=== PATIENT | male | born 1940 | race Caucasian/White ===

== ENCOUNTER 2016-12-07 05:04 | Inpatient (IN) ==
[2016-11-29 14:26] LABS: INR 0.96; PROTIME 10.1 Seconds (9.2-11.7); PTT 26.8 Seconds (22.0-36.0)
[2016-11-29 14:39] LABS: HEMATOCRIT 40.2 % (42.0-52.0); HEMOGLOBIN 13.1 g/dL (14.0-18.0); MCHC 32.6 g/dL (33-37); MCV 98.3 FL (81-99); MPV 9.5 FL (7.4-10.4); RBC 4.09 XMIL (4.7-6.1)
[2016-11-29 15:24] LABS: AGAP 15; BUN 16 mg/dL (8-22); CALCIUM 8.9 mg/dL (8.8-10.2); CHLORIDE 101 mmol/L (98-107); COSMO 281; POTASSIUM 4.5 mmol/L (3.5-5.1); SODIUM 140 mmol/L (136-145); TCO2 24 mmol/L (25-35)
--- NOTE | 2016-11-29 16:09 | EKG Report ---
Test Performed on : 11/29/2016 1:38:11 PM Test Reason : pat Blood Pressure : / mmHG Vent. Rate : 068 BPM Atrial Rate : 068 BPM P-R Int : 188 ms QRS Dur : 078 ms QT Int : 372 ms P-R-T Axes : 054 -14 022 degrees QTc Int : 395 ms Sinus rhythm. with marked sinus arrhythmia. Otherwise normal ECG When compared with ECG of 13-NOV-2012 12:13, No significant change was found Confirmed by Ishaan MONTALVO, Shamir Gonzalez ([id number]) on 11/29/2016 7:41:18 PM
[2016-12-07] MEDS ORDERED: KEFZOL 2 GM/D5W 2 GM/50 ML IVPB ONE (05:36)
[2016-12-07] MEDS ORDERED: LR 1,000 ML ONE (05:36)
[2016-12-07] MEDS ORDERED: DIPRIVAN 1% 1,000 MG/100 ML BOTTLE ONE (06:26)
[2016-12-07 09:11] LABS: URINE MICRO REVIEW NEEDED? NO; URINE SOURCE CATH
[2016-12-07 09:35] LABS: BILIRUBIN URINE NEGATIVE (NEGATIVE); BLOOD URINE NEGATIVE (NEGATIVE); COLOR YELLOW; GLUCOSE URINE NEGATIVE (NEGATIVE); LEUKOCYTES URINE NEGATIVE (NEGATIVE); NITRITE URINE NEGATIVE (NEGATIVE); PH URINE 6.5; PROTEIN URINE NEGATIVE (NEGATIVE); SP GRAVITY URINE 1.009; TURBIDITY URINE CLEAR (CLEAR); UROBILINOGEN URINE NORMAL (NORMAL)
[2016-12-07 09:37] LABS: UR EPITHELIAL CELLS <10 /HPF (<10); URINE BACTERIA NEGATIVE /HPF; URINE RBC <10 /HPF (<10); URINE WBC <10 /HPF (<10)
[2016-12-07] MEDS ORDERED: NS 0 ML ONE (10:16)
[2016-12-07] MEDS ORDERED: MORPHINE ONE (13:15)
[2016-12-07] MEDS ORDERED: ZOFRAN ONE (13:33)
[2016-12-07] MEDS ORDERED: EPHEDRINE ONE (13:33)
[2016-12-07] MEDS ORDERED: NEO-SYNEPHRINE ONE (13:33)
[2016-12-07] MEDS ORDERED: NEOSTIGMINE ONE (13:33)
[2016-12-07] MEDS ORDERED: NS 250 ML ONE (13:34)
[2016-12-07] MEDS ORDERED: NORCURON ONE (13:34)
[2016-12-07] MEDS ORDERED: ROBINUL ONE (13:34)
[2016-12-07] MEDS ORDERED: XYLOCAINE-MPF 2% ONE (13:34)
[2016-12-07] MEDS ORDERED: OFIRMEV 1000 MG/ISOTONIC SOLN 1,000 MG/100 ML BOTTLE ONE (13:34)
[2016-12-07] MEDS ORDERED: QUELICIN (DOSE) ONE (13:34)
[2016-12-07] MEDS ORDERED: DECADRON ONE (13:34)
[2016-12-07] MEDS ORDERED: LR 3,000 ML ONE (13:34)
[2016-12-07] MEDS ORDERED: DIPRIVAN 1% ONE (13:35)
[2016-12-07] MEDS ORDERED: FENTANYL ONE (13:35)
[2016-12-07] MEDS ORDERED: D5 1/2 NS 1,000 ML ONE (13:49)
[2016-12-07] MEDS ORDERED: PHENERGAN PR PRN (14:08)
[2016-12-07] MEDS ORDERED: ZOFRAN IV PRN (14:08)
[2016-12-07] MEDS ORDERED: LABETALOL IV PRN (14:08)
[2016-12-07] MEDS ORDERED: BENADRYL LIQUID PO PRN (14:08)
[2016-12-07] MEDS ORDERED: DITROPAN PO PRN (14:08)
[2016-12-07] MEDS ORDERED: BENADRYL IV PRN (14:08)
[2016-12-07] MEDS ORDERED: TYLENOL PO PRN (14:08)
[2016-12-07] MEDS ORDERED: PHENERGAN PO PRN (14:08)
[2016-12-07] MEDS ORDERED: SODIUM CHLORIDE 0.9% INJ PRN (14:08)
[2016-12-07] MEDS ORDERED: B & O 15A SUPP PR PRN (14:08)
[2016-12-07] MEDS: MORPHINE IV PRN ×2 (14:58→17:08)
[2016-12-07] MEDS: KEFZOL 1 GM/D5W 1 GM/50 ML IVPB IV SCH ×2 (14:58→23:10)
[2016-12-07] MEDS ORDERED: D5 1/2 NS 1,000 ML IV SCH (15:00)
[2016-12-07] MEDS: NORCO-7.5 PO PRN ×3 (15:21→21:57)
[2016-12-07] MEDS: PHENERGAN IV PRN (19:00)
[2016-12-07] MEDS ORDERED: ZOCOR PO SCH (21:00)
[2016-12-07] MEDS ORDERED: PERIDEX MT SCH (21:00)
[2016-12-07] MEDS ORDERED: COLACE PO SCH (21:00)
[2016-12-08] MEDS: PHENERGAN IV PRN (02:48)
[2016-12-08] MEDS: NORCO-7.5 PO PRN (02:49)
[2016-12-08 06:03] LABS: HEMATOCRIT 38.9 % (42.0-52.0); HEMOGLOBIN 12.8 g/dL (14.0-18.0); MCH 31.4 PG (27-31); MCHC 32.9 g/dL (33-37); MCV 95.6 FL (81-99); MPV 9.1 FL (7.4-10.4); RBC 4.07 XMIL (4.7-6.1)
[2016-12-08 06:31] LABS: AGAP 11; BUN 16 mg/dL (8-22); CALCIUM 8.8 mg/dL (8.8-10.2); CHLORIDE 99 mmol/L (98-107); COSMO 274; SODIUM 136 mmol/L (136-145); TCO2 26 mmol/L (25-35)
[2016-12-08] MEDS: KEFZOL 1 GM/D5W 1 GM/50 ML IVPB IV SCH (06:50)
[2016-12-08 08:41] VITALS: BP 120/74
[2016-12-08] MEDS ORDERED: BENICAR PO SCH (09:00)
[2016-12-08] MEDS ORDERED: NORVASC PO SCH (09:00)
[2016-12-08] MEDS ORDERED: PATIENT'S OWN MED SUBQ SCH (09:00)
--- NOTE | 2016-12-08 09:26 | PROGRESS NOTE ---
DATE: 12/08/2016 SUBJECTIVE: Mr. Asif reports a decent night overnight. He currently denies pain. He denies significant bladder spasms. OBJECTIVE: Vital Signs: Temperature 98.1 degrees, pulse 60, BP 120/74. Urine output was recorded in the amount of 2625 mL. General: No acute distress. Abdomen: Appropriately tender, nondistended. Incisions are clean, dry, and intact in all port sites. : Lomas catheter in place, draining straw-colored urine. ASSESSMENT: A 76-year-old male status post robotic prostatectomy with bilateral pelvic lymph node dissection and laparoscopic urethral suspension, who is doing well. He was educated on postoperative care by me, and cleared for discharge. PLAN: 1. Discharge home. 2. Home with prescriptions for [place] 7.5 p.r.n., Keflex 500 mg t.i.d. (#9), Ditropan 5 mg p.r.n. (#20). 3. He will follow up with me on 12/12/2016 for Lomas catheter removal and pathology review. cc: Tru Jackson MD
--- NOTE | 2016-12-08 10:06 | OPERATIVE NOTE ---
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 PRIMARY PROCEDURES: Robotic-assisted laparoscopic prostatectomy with bilateral pelvic lymph node dissection, and laparoscopic urethral suspension. INDICATIONS: A 76-year-old male who presented with a rising PSA. He underwent prostate biopsy which revealed multifocal [place] 8 prostate adenocarcinoma. He desires to proceed with surgical intervention. He had quite extensive disease in 10 out of 12 cores. FINDINGS: Watertight vesicourethral anastomosis. Adequate hemostasis. Adequate urethral suspension. PROCEDURE IN DETAIL: After obtaining informed consent, the patient was brought to the operative room. Perioperative antibiotics and general endotracheal anesthesia were administered. Prior to that, he had a spinal anesthesia administered per patient's family request. He was placed in lithotomy position, prepped and draped in sterile fashion. An 18-Ind[place]ian Lomas catheter was introduced in a sterile fashion. A 15 blade scalpel was used to make a small stab incision in the umbilicus, followed by introduction of the Veress needle connected to saline filled syringe. We could not confirm positive drop test, and I switched it to the upper left quadrant. The Veress needle inserted there. We confirmed positive drop test, followed by aspiration of fluid in the syringe without evidence of GI contents or blood. We then insufflated his pneumoperitoneum to 15 mmHg. We marked out the trocar sites in a standard fashion. Bovie electrocautery was used to incise the skin. Camera trocar was introduced. Abdominal cavity was examined without evidence of significant adhesions. The rest of the trocars were placed under direct vision. He was placed in steep Trendelenburg position. The robot was docked. We began by incising the peritoneum approximately 3 cm above the rectum, identifying right vas deferens, following by dissection and transection. We then identified the right seminal vesicle and dissected it with minimal use of electrocautery to save neurovascular bundles. We then performed the same thing on the left side. Subsequent to that, we dissected anterior to vas deferens to the level of the prostate and posterior to the vas deferens, through Denonvilliers fascia, into perirectal planes. Once that was done, we turned attention to dropping the bladder. We incised lateral to each medial umbilical ligament until space of Retzius was accessed. Endopelvic fascia was cleaned, cleared of fatty tissue. It was incised following the contour the prostate towards the apex. Puboprostatic ligaments were sharply divided. Superficial dorsal venous complex was controlled with Bovie electrocautery, deep dorsal venous complex was controlled with a 0 V-Loc suture in a mwtniw-mj-gvwln fashion, as well as anterior periosteal elevation. We then turned our attention to identification of the bladder neck. Monopolar cautery was used to transect through the bladder neck. With assistance of Lomas catheter, the prostate was placed in anterior traction. We then developed the plane between the bladder and the prostate, eventually leading us to the seminal vesicles and vas deferens. Those were then brought into the field, allowing us to place the prostate in a more superior and anterior elevation. We then reflected neurovascular bundles with the use of Hem-o-Deedee clips and no electrocautery. The prostate was dissected posteriorly, leaving it just attached at the apex. The apex of the prostate was sharply transected. We used partial urethral length sparing technique, given his extent of disease. The urethra was transected sharply and the prostate was delivered into the field and placed into the EndoCatch bag. We then examined the operative field and there was no evidence of significant bleeding. Following that, we turned attention to the pelvic lymph node dissection. On the right side, external iliac vein was identified and lymph node packet medial to it was grasped and dissected. We dissected it to its confluence with the common iliac vein superiorly, to the perivesical fat medially, to the pelvic sidewall laterally, and to the obturator vessels and nerve posteriorly. The obturator nerve was seen and obviously preserved. Surgicel hemostatic agent was then placed into the lymphadenectomy bed. We then performed the exact same thing on the opposite side with identical landmarks. The lymph nodes were placed in the EndoCatch bag as well. Following that, we turned our attention to the vesicourethral anastomosis. 3-0 V -Loc suture was used to reapproximate perivesical and periurethral fascia in a running fashion. We saved those sutures for future laparoscopic suspension. We then performed the vascular anastomosis itself with a 3-0 V-Loc suture in a running fashion, in a clockwise and counterclockwise fashion, and subsequently cross tying the sutures. Fresh 18-Ind[place]ian Lomas catheter was placed and the anastomosis was tested with 240 mL of normal saline, without any evidence of leakage. We then performed laparoscopic suspension by threading the previously placed block Babak sutures through the periosteum of the pubis and suspended the urethra. The suspension appeared to be adequate. Pressure was decreased to 3 mmHg and there was no evidence of active bleeding. The trocars were removed after the robot was undocked. The super umbilical incision was extended and the prostate and lymph nodes were delivered. The wounds were copiously irrigated. An 0 Vicryl suture was used in an interrupted [id number]-ln-[id number] fashion to reapproximate the supraumbilical fascia. Wounds were irrigated again. I could not visualize his fascia and the 12 mm culinary assistant trocar. We then used 4- 0 Monocryl for subcuticular closure, followed by application of Dermabond skin adhesive. He was extubated and taken to PACU for further recovery. ESTIMATED BLOOD LOSS: 100 mL. COMPLICATIONS: None. DISPOSITION: To PACU and subsequently floor for observation. Lomas catheter to gravity drainage. cc: Tru Jackson MD MTDD
[2016-12-11] MEDS ORDERED: METHOTREXATE PO SCH (09:00)
== END 2016-12-08 09:33 | disposition home or self-care (01) ==
LOC: SURHOLD 05:04 → 4N 12:53
PROVIDERS: ADMIT Urology; ATTEND Urology